=== PATIENT | male | born 1970 | race Caucasian/White ===

== ENCOUNTER 2024-02-28 08:30 | Outpatient (AMB) | payer OTHER, SELFPAY ==
[2024-02-28 08:34] VITALS: BP 122/86; PULSE 69; O2SAT 95; BMI 32.4
--- NOTE | 2024-02-28 08:34 | HO.NEPHOV_ITS ---
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 53 yr old man with newly diagnosed HTN Recently started on AMlodipine 2.5 mg and developed swelling of fingers. No leg edema Amlodipine was stopped 2 weeks ago. Losartan 25 mg was started . First dose was yesterday No issues. 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 [facility] Social History (Updated 02/28/24 @ 08:36 by Madelin Gant) Alcohol intake: never Patient Tobacco Use Status: Never used Tobacco Use of substances other than those prescribed or required for medical reasons: No Physical Exam Vital Signs: Last Vital Signs Pulse 69 02/28/24 08:34 BP 122/86 02/28/24 08:34 Pulse Ox 95 02/28/24 08:34 Oxygen Delivery Method Room Air 02/28/24 08:34 BMI result Body Mass Index 32.4 Const General: comfortable Nutritional Appearance: well nourished Orientation/consciousness: patient oriented x3 HEENT Head: No normal to inspection Mouth: moist mucous membranes Neck Neck: Yes supple and Yes no JVD Resp Auscultation: clear to auscultation bilaterally, no rales and rub present Cardio Jugular venous distension: no JVD Palpation: no palpable S3 and no palpable S4 Heart sounds: no rubs GI Palpation (GI): Soft to palpation and nontender Percussion: No Fluid wave present General: Yes no CVA tenderness Back/Spine/Pelvis Back: no CVA tenderness Skin General skin exam: no rashes or lesions noted Neuro General: patient oriented x3 Extrem General: Yes no pedal edema and No clubbing Results Reviewed Results Reviewed: Creatinine normal Nephrology Results: No Data to Display Assessment & Plan Assessment & Plan (1) Elevated blood pressure reading: Code(s): R03.0 - Elevated blood-pressure reading, without diagnosis of hypertension Category: Medical Plan . 53 yr old healthy man with newly diagnosed HTN BP is excellent today Currently on low dose Losartan 25 mg QD Would proceed with 24 hr ABPM Discussed low salt diet, regular exercise activity- atleast 20 min of walking a day and would benefit from weight loss Based on the ABPM , would reassess antihypertensives. Orders: Orders AMB 24 Hour Blood Pressure Monitor PLACEMENT Today I10 - Essential (primary) hypertension Coding Level of Care Code New Pt Level 4 (90662) Diagnoses Elevated blood pressure reading R03.0
== END 2024-02-28 09:05 | disposition home or self-care (01) ==
PROVIDERS: PCP Family Medicine; Referring Provider Family Medicine; Visit Provider Internal Medicine Hypertension Specialist
DX: R03.0 Elevated blood-pressure reading, without diagnosis of hypertension (principal)
CPT/HCPCS: 99204

== ENCOUNTER → 2024-02-28 08:30 | Outpatient (BNVA) | payer OTHER, SELFPAY | PROVIDERS: PCP Family Medicine; Referring Provider Family Medicine; Visit Provider Internal Medicine Hypertension Specialist ==

== ENCOUNTER → 2024-03-05 15:24 | Outpatient (BNVA) | payer OTHER, SELFPAY | PROVIDERS: PCP Family Medicine; Visit Provider Internal Medicine Hypertension Specialist ==

== ENCOUNTER → 2024-03-06 15:17 | Outpatient (BNVA) | payer OTHER, SELFPAY | PROVIDERS: PCP Family Medicine; Visit Provider Internal Medicine Hypertension Specialist ==

== ENCOUNTER 2024-03-13 08:28 | Outpatient (AMB) | payer OTHER, SELFPAY ==
[2024-03-13 08:44] VITALS: BP 124/88; PULSE 75; O2SAT 96; BMI 32.5
--- NOTE | 2024-03-13 08:44 | HO.NEPHOV_ITS ---
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 53 yr old man with newly diagnosed HTN Recently started on Amlodipine 2.5 mg and developed swelling of fingers. No leg edema Amlodipine was stopped 2 weeks ago. Losartan 12.5 mg was started . First dose was yesterday No issues. 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 [facility], [facility] Social History Alcohol intake: never Patient Tobacco Use Status: Never used Tobacco Physical Exam Vital Signs: Last Vital Signs Pulse 75 03/13/24 08:44 BP 124/88 03/13/24 08:44 Pulse Ox 96 03/13/24 08:44 Oxygen Delivery Method Room Air 03/13/24 08:44 BMI result Body Mass Index 32.5 Const General: comfortable Nutritional Appearance: well nourished Orientation/consciousness: patient oriented x3 HEENT Head: No normal to inspection Mouth: moist mucous membranes Neck Neck: Yes supple and Yes no JVD Resp Auscultation: clear to auscultation bilaterally, no rales and rub present Cardio Jugular venous distension: no JVD Palpation: no palpable S3 and no palpable S4 Heart sounds: no rubs GI Palpation (GI): Soft to palpation and nontender Percussion: No Fluid wave present General: Yes no CVA tenderness Back/Spine/Pelvis Back: no CVA tenderness Skin General skin exam: no rashes or lesions noted Neuro General: patient oriented x3 Extrem General: Yes no pedal edema and No clubbing Office Procedures 24 B/P Monitor Interpretation CPT: 14687 24 Hour Blood Pressure Monitor Reading Procedure code (CPT) selection complete Results Reviewed Nephrology Results: No Data to Display Assessment & Plan Assessment & Plan (1) HTN (hypertension): Comment: 24 hr ABPM: 24 hr average: 129/88; Daytime ave: 131/92;Nighttime :122/76; Sub optimal dipping Code(s): I10 - Essential (primary) hypertension Category: Medical Plan . 53 yr old healthy man with newly diagnosed HTN BP is acceptable today Currently on low dose Losartan 12.5 mg QD 24 hr ABPM showed an average of 129/88 with daytime average of 131/92 Based on this, I would increase Losartan to 25 mg daily Discussed low salt diet and weight loss, regular exercise activity- atleast 20 min of walking a day and would benefit from weight loss Follow up with endocrine regarding hypothyroidism Coding Level of Care Code Est Pt Level 4 (49819) Procedure Only Diagnoses HTN (hypertension) I10 CPT Codes - CPT: 20440 24 Hour Blood Pressure Monitor Reading ([id number])
== END 2024-03-13 09:07 | disposition home or self-care (01) ==
LOC: HO.HKAS 08:28
PROVIDERS: PCP Family Medicine; Visit Provider Internal Medicine Hypertension Specialist
DX: I10 Essential (primary) hypertension (principal)
CPT/HCPCS: 93790; 99213

== ENCOUNTER → 2024-03-13 08:28 | Outpatient (BNVA) | payer OTHER, SELFPAY | PROVIDERS: PCP Family Medicine; Visit Provider Internal Medicine Hypertension Specialist | DX: I10 Essential (primary) hypertension (principal) ==